=== PATIENT | male | born 1950 | race Caucasian/White ===

== ENCOUNTER 2023-11-30 20:27 | Inpatient (IN) | payer OTHER ==
[~2023-11-30] VITALS: Ht 170.2 cm; Wt 34.9 kg
[2023-11-30 20:41] VITALS: BP 97/59; PULSE 94; RESP 18; TEMP 98.3; O2SAT 98
[2023-11-30 21:36] LABS: BASOPHILS # (AUTO) 0.1 K/uL (0.00-0.22); BASOPHILS % (AUTO) 0.4 % (0.0-2.0); EOSINOPHILS # (AUTO) 0.1 K/uL (0-0.4); EOSINOPHILS % (AUTO) 0.6 % (0.0-4.0); HEMATOCRIT 46.5 % (36-52); HEMOGLOBIN 15.6 g/dL (12.0-18.0); LYMPHOCYTES # (AUTO) 0.7 K/uL (2.0-11.5); LYMPHOCYTES % (AUTO) 6.4 % (20.5-51.1); MEAN CORPUSCULAR HEMOGLOBIN 30 pg (27-31); MEAN CORPUSCULAR HGB CONC 34 g/dL (33-37); MEAN CORPUSCULAR VOLUME 89.2 fL (80-94); MONOCYTES # (AUTO) 0.8 K/uL (0.8-1.0); MONOCYTES % (AUTO) 6.5 % (1.7-9.3); NEUTROPHILS # (AUTO) 10.1 K/uL (1.8-7.7); NEUTROPHILS % (AUTO) 86.1 % (42.2-75.2); PLATELET COUNT (AUTO) 88 K/uL (140-450); RED BLOOD CELL COUNT(AUTO) 5.21 MIL/uL (4.20-6.10); RED CELL DISTRIBUTION WIDTH 13.3 % (11.6-13.7); WHITE BLOOD COUNT (AUTO) 11.8 K/uL (4.8-10.8)
[2023-11-30] MEDS ORDERED: PIPERACILLIN/TAZOBACTAM 3.375 GM VIAL IV ONE (21:39)
[2023-11-30] MEDS: PIPERACILLIN/TAZOBACTAM 3.375 GM in DEXT 5% MINI-BAG PLUS 50 ML IV ONE (21:42)
[2023-11-30 21:48] LABS: INR 1.26 (0.8-1.2); PARTIAL THROMBOPLASTIN TIME 28.5 secs (22-35.6)
[2023-11-30 21:52] LABS: APPEARANCE,URINE CLOUDY (CLEAR); BILIRUBIN,URINE 1+ (NEGATIVE); BLOOD, URINE 3+ (NEGATIVE); COLOR,URINE YELLOW (YELLOW); LEUKOCYTE ESTERASE ,URINE 2+ (NEGATIVE); NITRITE, URINE NEGATIVE (NEGATIVE); PH,URINE 5.5 (5.0-9.0); PROTEIN,URINE 2+ (NEGATIVE); UGLUCOSE NEGATIVE (NEGATIVE)
[2023-11-30 21:54] LABS: ANION GAP 14.3 (8-16); CALCIUM 8.7 mg/dL (8.5-10.1); CARBON DIOXIDE 26.6 mmol/L (21-32); CHLORIDE 99 mmol/L (98-107); CREATININE 1.7 mg/dL (0.6-1.3); GLUCOSE 248 mg/dL (74-106); POTASSIUM 3.9 mmol/L (3.5-5.1); SODIUM SERUM 136 mmol/L (136-145); UREA NITROGEN, BLOOD 33 mg/dL (7-18)
[2023-11-30 21:56] LABS: ALANINE AMINOTRANSFERASE 42 U/L (12-78); ALBUMIN 3.1 g/dL (3.4-5.0); ALKALINE PHOSPHATASE 144 U/L (50-136); ASPARTATE AMINOTRANSFERASE 30 U/L (15-37); BILIRUBIN,DIRECT 0.6 mg/dL (0.0-0.3); TOTAL BILIRUBIN 1.2 mg/dL (0.0-1.0); TOTAL PROTEIN, SERUM 7.2 g/dL (6.4-8.2)
[2023-11-30] MEDS: NACL 0.9% 1,000 ML IV SCH ×2 (21:58→23:38)
[2023-11-30 21:59] LABS: BACTERIA,URINE >30 (MANY) /HPF (None Seen); ICTOTEST NEGATIVE (NEGATIVE); MUCUS,URINE 1+ /LPF (None Seen); RBC,URINE 11-20 (MOD) /HPF (0-5); SQUAMOUS EPITHELIAL CELL,UR 0-3 (FEW) /LPF (0-3 (FEW))
[2023-11-30 22:05] LABS: LACTIC ACID 2.5 mmol/L (0.4-2.0)
[2023-11-30 22:16] LABS: FLU A ANTIGEN negative (NEGATIVE); FLU B ANTIGEN NEGATIVE (NEGATIVE)
[2023-11-30] MEDS: NACL 0.9% 1,000 ML IV ONE (22:37)
[2023-11-30] MEDS ORDERED: DEXTROSE 50% 50 ML SYR IVP PRN (22:50)
[2023-11-30] MEDS ORDERED: ALBUTEROL 0.083% 2.5 MG/3 ML NEBU INH PRN (22:50)
[2023-11-30] MEDS ORDERED: ONDANSETRON 4 MG/2 ML VIAL IVP PRN (22:50)
[2023-11-30] MEDS ORDERED: HYDROcodone/APAP 5/325 MG 1 TAB TAB PO PRN (22:50)
[2023-11-30] MEDS ORDERED: LOVA20TA8 PO (23:50)
[2023-11-30] MEDS ORDERED: LOSA-272 PO (23:50)
[2023-11-30] MEDS ORDERED: METF-1139 PO (23:50)
[2023-12-01] VITALS (7 sets, daily range): BP systolic 135–159; BP diastolic 82–87; PULSE 70–120; RESP 18–22; TEMP 98–101.4; O2SAT 93–98
[2023-12-01] MEDS ORDERED: PIPERACILLIN/TAZOBACTAM 3.375 GM VIAL IV ONE (05:04)
[2023-12-01] MEDS: PIPERACILLIN/TAZOBACTAM 3.375 GM in DEXTROSE 5% 50 ML IV SCH (05:06)
[2023-12-01 06:58] LABS: BASOPHILS % (AUTO) 0.2 % (0.0-2.0); EOSINOPHILS % (AUTO) 0.1 % (0.0-4.0); HEMATOCRIT 45.7 % (36-52); HEMOGLOBIN 15.9 g/dL (12.0-18.0); LYMPHOCYTES # (AUTO) 0.6 K/uL (2.0-11.5); MEAN CORPUSCULAR HEMOGLOBIN 31 pg (27-31); MEAN CORPUSCULAR HGB CONC 35 g/dL (33-37); MEAN CORPUSCULAR VOLUME 87.8 fL (80-94); MONOCYTES # (AUTO) 0.9 K/uL (0.8-1.0); NEUTROPHILS # (AUTO) 10.7 K/uL (1.8-7.7); NEUTROPHILS % (AUTO) 87.7 % (42.2-75.2); PLATELET COUNT (AUTO) 77 K/uL (140-450); RED CELL DISTRIBUTION WIDTH 13.3 % (11.6-13.7); WHITE BLOOD COUNT (AUTO) 12.2 K/uL (4.8-10.8)
[2023-12-01 07:09] LABS: ANION GAP 15.6 (8-16); CALCIUM 8.4 mg/dL (8.5-10.1); CARBON DIOXIDE 22.3 mmol/L (21-32); CHLORIDE 103 mmol/L (98-107); CREATININE 1.3 mg/dL (0.6-1.3); GLUCOSE 213 mg/dL (74-106); POTASSIUM 3.9 mmol/L (3.5-5.1); SODIUM SERUM 137 mmol/L (136-145); UREA NITROGEN, BLOOD 24 mg/dL (7-18)
[2023-12-01 07:16] LABS: MAGNESIUM 1.8 mg/dL (1.8-2.4)
[2023-12-01] MEDS: BLOOD GLUCOSE MONITORING 1 DEV DEV FS SCH (07:50)
[2023-12-01] MEDS: INSULIN LISPRO SLIDING SCALE 100 UNITS/ML VIAL SUBQ PRN (07:50)
[2023-12-01] MEDS: ACETAMINOPHEN 325 MG TAB PO PRN (12:06)
[2023-12-01] MEDS: LOSARTAN 50 MG TAB PO SCH (12:39)
[2023-12-01] MEDS ORDERED: hydrALAZINE 20 MG/ML VIAL IVP PRN (23:10)
[2023-12-02] VITALS (8 sets, daily range): BP systolic 90–137; BP diastolic 57–84; PULSE 85–95; RESP 16–18; TEMP 97.6–98.9; O2SAT 92–99
[2023-12-02] MEDS: INSULIN LANTUS 100 UNITS/ML 10 ML VIAL SUBQ SCH ×2 (01:30→21:51)
[2023-12-02] MEDS: ENOXAPARIN 40 MG/0.4 ML SYR SUBQ SCH (09:00)
[2023-12-02] MEDS: ATORVASTATIN 80 MG TAB PO SCH (09:33)
[2023-12-02] MEDS: PANTOPRAZOLE 40 MG INJ VIAL IVP SCH (09:34)
[2023-12-02 13:35] LABS: BASOPHILS # (AUTO) 0.1 K/uL (0.00-0.22); BASOPHILS % (AUTO) 0.5 % (0.0-2.0); EOSINOPHILS # (AUTO) 0.1 K/uL (0-0.4); EOSINOPHILS % (AUTO) 0.9 % (0.0-4.0); HEMATOCRIT 43.4 % (36-52); HEMOGLOBIN 14.9 g/dL (12.0-18.0); LYMPHOCYTES % (AUTO) 10.3 % (20.5-51.1); MEAN CORPUSCULAR HEMOGLOBIN 30 pg (27-31); MEAN CORPUSCULAR HGB CONC 34 g/dL (33-37); MEAN CORPUSCULAR VOLUME 88.2 fL (80-94); MONOCYTES # (AUTO) 1.1 K/uL (0.8-1.0); MONOCYTES % (AUTO) 10.4 % (1.7-9.3); NEUTROPHILS # (AUTO) 7.9 K/uL (1.8-7.7); NEUTROPHILS % (AUTO) 77.9 % (42.2-75.2); PLATELET COUNT (AUTO) 110 K/uL (140-450); RED BLOOD CELL COUNT(AUTO) 4.92 MIL/uL (4.20-6.10); RED CELL DISTRIBUTION WIDTH 13.1 % (11.6-13.7); WHITE BLOOD COUNT (AUTO) 10.1 K/uL (4.8-10.8)
[2023-12-03 05:59] VITALS: BP 112/65; PULSE 83; RESP 18; TEMP 98.3; O2SAT 96
[2023-12-03 08:00] VITALS: BP 128/77; PULSE 80; RESP 18; TEMP 98.7; O2SAT 96
[2023-12-03 16:00] VITALS: BP 129/77; PULSE 80; RESP 18; TEMP 99; O2SAT 96
[2023-12-03] MEDS ORDERED: SULF-954 PO (19:21)
[2023-12-03] MEDS ORDERED: METF-346 PO (19:24)
[2023-12-03] MEDS ORDERED: GLIP5TER PO (19:24)
[2023-12-03] MEDS ORDERED: LIP80 PO (19:24)
[2023-12-03 19:32] VITALS: PULSE 96; RESP 20; O2SAT 96
[2023-12-03 20:00] VITALS: BP 128/68; PULSE 95; RESP 18; TEMP 98.4; O2SAT 96
[2023-12-03 20:25] VITALS: BP 133/68; PULSE 88; RESP 18; TEMP 98.2
[2023-12-04] VITALS: BP 132/70; PULSE 72; RESP 18; TEMP 98.2; O2SAT 97
[2023-12-04 04:00] VITALS: BP 121/70; PULSE 76; RESP 18; TEMP 98.8; O2SAT 96
== END 2023-12-04 09:29 | disposition home or self-care (01) | DRG 871 ==
LOC: MED 20:27 → MTU 22:47
PROVIDERS: ADMIT Student in an Organized Health Care Education/Training Program; ATTEND Student in an Organized Health Care Education/Training Program
DX: A41.9 Sepsis, unspecified organism (principal); G93.41 Metabolic encephalopathy; N39.0 Urinary tract infection, site not specified; N17.9 Acute kidney failure, unspecified; Z20.822 Contact with and (suspected) exposure to COVID-19; I10 Essential (primary) hypertension; E11.9 Type 2 diabetes mellitus without complications; Z79.899 Other long term (current) drug therapy; Z88.8 Allergy status to other drugs, medicaments and biological substances; Z86.73 Personal history of transient ischemic attack (TIA), and cerebral infarction without residual deficits; Z85.46 Personal history of malignant neoplasm of prostate
CPT/HCPCS: 36415; 71045; 80048; 80076; 81001; 82948; 83036; 83605; 83735; 83880; 84100; 84484; 85025; 85610; 85730; 87040; 87081; 87086; 87186; 93005; 96374; 97163-GP; 97530; 99291; J0696; J1650; J1815; J2470; J2543; J7060; J7613; Q0092